=== PATIENT | male | born 1975 | race Caucasian/White ===

== ENCOUNTER 2021-05-04 08:55 | Outpatient (CLI) | payer OTHER | END 2021-05-04 23:59 | disposition home or self-care (01) | LOC: CFH 08:55 → CVU 23:59 | PROVIDERS: ATTEND Internal Medicine Cardiovascular Disease | DX: R94.31 Abnormal electrocardiogram [ECG] [EKG] (principal); R07.9 Chest pain, unspecified | CPT/HCPCS: 93306; 93356 ==